=== PATIENT | female | born 1945 | race Caucasian/White ===

== ENCOUNTER 2016-05-15 18:26 | Inpatient (IN) | payer OTHER, MEDICARE ==
[~2016-05-15] VITALS: Ht 165.1 cm; Wt 101.7 kg
[~2016-05-15 18:26] MED LIST: ALLOPURINOL300 MG PO; ALPRAZOLAM0.5 MG PO; ARIMIDEX1 MG PO; ASPIR-LOW81 MG PO; BENADRYL50 MG PO; BIOTIN 5000MCG PO; BIOTIN2500 MCG PO; CALCIUM PO; CARAFATE1 GM PO; CELEXA40 MG PO; CENTRUM SILVER1 EAC3 PO; COLACE100 MG PO; FLEXERIL10 MG PO; GABAPENTIN300 MG PO; LEVOTHYROXINE175 MCG PO; MAGNESIUM OXID400 MG PO; METOCLOPRAMIDE10 MG PO; NORCO 5/3251 TABLET PO; OMEPRAZOLE40 M1 PO; OXAYDO5 MG PO; PERCOCET 10/1 TABLET PO; PERCOCET 5/31 TABLET PO; PERCOCET 7.51 TABLET PO; POLYETHYLENE GL17 GM PO; PROTONIX40 MG PO; REGLAN10 MG PO; REQUIP1 MG PO; SKELAXIN800 MG PO; TYLENOL EXTRA500 MG PO; VITAMIN B-12500 MC2 PO; VITAMIN D PO; VITAMIN D10000 UNIT PO; VITRON-C TABLE1 EACH PO; ZESTORETIC 20-1 EAC1 PO
[2016-05-15 19:23] LABS: EOSINOPHIL (%) 0.1 % (0-5); HEMATOCRIT 39.1 % (36.0-46.0); IMMATURE GRANULOCYTE (%) 0.3 % (0.0-0.7); IMMATURE GRANULOCYTE COUNT 0.6 K/uL; LYMPHOCYTE COUNT 0.6 K/uL (1.0-2.8); MCH 28.2 PG (29.0-34.0); MCHC 32.7 G/DL (30.0-36.0); MCV 86.1 FL (83-99); MEAN PLAT.VOLUME 11.1 uM^3 (9.5-12.4); MONOCYTE (%) 5.3 % (3-12); NEUTROPHIL COUNT 17.1 K/uL (1.8-6.4); PLATELET COUNT 185 K/uL (156-360); RBC DIS.WIDTH-CV 14.5 % (11.8-14.6); RED BLOOD COUNT 4.54 M/uL (3.80-5.20); WHITE BLOOD COUNT 18.8 K/uL (4.1-10.2)
[2016-05-15 19:46] LABS: TROP-I INTERPRETATION NEGATIVE; TROPONIN-I < 0.01 ng/mL (0.0-0.30)
[2016-05-15 19:50] LABS: CHLORIDE 102 mEq/L (99-109); SODIUM 138 mEq/L (136-147)
[2016-05-15 19:51] LABS: GLUCOSE 116 mg/dL (70-99)
[2016-05-15 19:53] LABS: ANION GAP 7 MEQ/L (2-14)
[2016-05-15 19:55] LABS: GFR ESTIMATE (CALCULATED) > 59 mL/min/
[2016-05-15 19:56] LABS: UREA NITROGEN (BUN) 14 mg/dL (9-23)
[2016-05-15 20:45] LABS: ADD MIUA? YES; BILIRUBIN NEGATIVE; BLOOD MODERATE; COLOR YELLOW ((YELLOW)); GLUCOSE (STRIP) NEGATIVE; KETONES NEGATIVE; LEUKOCYTES NEGATIVE; NITRITE NEGATIVE; PROTEIN (STRIP) NEGATIVE; SPECIFIC GRAVITY 1.011 (1.000-1.030); UROBILINOGEN 0.2 MG/DL (0.2-1.0)
[2016-05-15 20:57] LABS: BACTERIA RARE /HPF; EPITHELIAL CELLS RARE /HPF; MUCUS NONE SEEN /LPF; RED BLOOD CELLS 0-5 /HPF (0-5); UCUL ADDED? NO; WHITE BLOOD CELLS 0-5 /HPF (0-5)
[2016-05-15] MEDS ORDERED: ROPINIROLE HCL1 MG PO (21:53)
[2016-05-15] MEDS ORDERED: ZESTORETIC 20-1 EAC2 PO (21:53)
[2016-05-15] MEDS ORDERED: ZOFRAN4 MG PO (21:55)
[2016-05-15] MEDS ORDERED: SILVADENE20 GM TP (21:55)
[2016-05-15] MEDS ORDERED: METAMUCIL PACKE1 PKT PO (21:55)
[2016-05-16 00:10] VITALS: BP 92/54
[2016-05-16 08:06] VITALS: BP 138/63
[2016-05-16 16:00] VITALS: BP 140/59
[2016-05-17 00:18] VITALS: BP 122/81
[2016-05-17 06:35] LABS: HEMATOCRIT 31.8 % (36.0-46.0); MCH 28.6 PG (29.0-34.0); MCHC 32.4 G/DL (30.0-36.0); MCV 88.3 FL (83-99); MEAN PLAT.VOLUME 11.9 uM^3 (9.5-12.4); PLATELET COUNT 132 K/uL (156-360); RBC DIS.WIDTH-SD 48.6 % (39-53); WHITE BLOOD COUNT 16.8 K/uL (4.1-10.2)
[2016-05-17 07:04] LABS: ALKALINE PHOSPHATASE 64 IU/L (3-129); ANION GAP 9 MEQ/L (2-14); CHLORIDE 104 MEQ/L (99-109); GFR ESTIMATE (CALCULATED) > 59 mL/min/; GLUCOSE 125 mg/dL (70-99); POTASSIUM 3.5 MEQ/L (3.7-5.4); SAMPLE HEMOLYSIS CHECK 0; SAMPLE ICTERIC CHECK 0; SAMPLE LIPEMIA CHECK 0; SODIUM 135 MEQ/L (136-147); TOTAL BILIRUBIN 0.8 MG/DL (0.0-1.0); UREA NITROGEN (BUN) 14 mg/dL (9-23)
[2016-05-17 08:15] VITALS: BP 158/67
[2016-05-17 11:50] VITALS: BP 120/57
[2016-05-17 16:20] VITALS: BP 115/61
[2016-05-17 18:53] LABS: INFLUENZA A VIRAL ANTIGEN NEGATIVE; INFLUENZA B VIRAL ANTIGEN NEGATIVE
[2016-05-17 22:57] VITALS: BP 138/76
[2016-05-18 09:23] VITALS: BP 133/65
[2016-05-18 11:08] LABS: EOSINOPHIL (%) 0.1 % (0-5); HEMATOCRIT 30.7 % (36.0-46.0); IMMATURE GRANULOCYTE (%) 0.5 % (0.0-0.7); IMMATURE GRANULOCYTE COUNT 0.1 K/uL; LYMPHOCYTE COUNT 0.5 K/uL (1.0-2.8); MCH 29.2 PG (29.0-34.0); MCHC 33.2 G/DL (30.0-36.0); MEAN PLAT.VOLUME 11.6 uM^3 (9.5-12.4); MONOCYTE (%) 5.4 % (3-12); MONOCYTE COUNT 0.9 K/uL (0-0.8); NEUTROPHIL COUNT 15.8 K/uL (1.8-6.4); PLATELET COUNT 158 K/uL (156-360); RBC DIS.WIDTH-SD 48.3 % (39-53); RED BLOOD COUNT 3.49 M/uL (3.80-5.20); WHITE BLOOD COUNT 17.3 K/uL (4.1-10.2)
[2016-05-18 11:26] LABS: ALKALINE PHOSPHATASE 78 IU/L (3-129); ANION GAP 6 MEQ/L (2-14); CHLORIDE 102 MEQ/L (99-109); GFR ESTIMATE (CALCULATED) > 59 mL/min/; GLUCOSE 144 mg/dL (70-99); POTASSIUM 3.5 MEQ/L (3.7-5.4); SAMPLE HEMOLYSIS CHECK 0; SAMPLE ICTERIC CHECK 0; SAMPLE LIPEMIA CHECK 0; SODIUM 133 MEQ/L (136-147); UREA NITROGEN (BUN) 13 mg/dL (9-23)
[2016-05-18 11:27] LABS: TOTAL BILIRUBIN 0.6 MG/DL (0.0-1.0)
[2016-05-18 16:30] VITALS: BP 121/72
[2016-05-18 23:20] VITALS: BP 117/62
[2016-05-19 08:00] VITALS: BP 112/67
[2016-05-19 16:02] VITALS: BP 125/67
[2016-05-19 22:40] VITALS: BP 127/60
[2016-05-20 07:07] VITALS: BP 134/82
[2016-05-20 07:43] LABS: HEMATOCRIT 29.6 % (36.0-46.0); MCH 28.5 PG (29.0-34.0); MCHC 33.1 G/DL (30.0-36.0); MEAN PLAT.VOLUME 11.6 uM^3 (9.5-12.4); PLATELET COUNT 146 K/uL (156-360); RBC DIS.WIDTH-CV 14.9 % (11.8-14.6); RBC DIS.WIDTH-SD 47.1 % (39-53); RED BLOOD COUNT 3.44 M/uL (3.80-5.20)
[2016-05-20 07:44] LABS: WHITE BLOOD COUNT 10.2 K/uL (4.1-10.2)
[2016-05-20 07:45] LABS: ALKALINE PHOSPHATASE 66 IU/L (3-129); ANION GAP 7 MEQ/L (2-14); CHLORIDE 106 MEQ/L (99-109); GFR ESTIMATE (CALCULATED) > 59 mL/min/; POTASSIUM 3.6 MEQ/L (3.7-5.4); SAMPLE HEMOLYSIS CHECK 0; SAMPLE ICTERIC CHECK 0; SAMPLE LIPEMIA CHECK 0; UREA NITROGEN (BUN) 20 mg/dL (9-23)
[2016-05-20 07:46] LABS: GLUCOSE 97 mg/dL (70-99); SODIUM 140 MEQ/L (136-147); TOTAL BILIRUBIN 0.3 MG/DL (0.0-1.0)
[2016-05-20 15:05] VITALS: BP 148/74
[2016-05-20 23:23] VITALS: BP 161/70
[2016-05-21 07:42] VITALS: BP 140/72
[2016-05-21 11:43] VITALS: BP 160/75
[2016-05-21] MEDS ORDERED: DURICEF500 MG PO (14:50)
[2016-05-21 15:45] VITALS: BP 181/85
[2016-05-21] MEDS ORDERED: DURICEF1 GM PO (16:42)
== END 2016-05-21 18:23 | disposition home or self-care (01) | DRG 907 ==
LOC: EME 18:26 → 5EAST 22:10 → EDOF 22:10 → 5EAST 23:27
PROVIDERS: Emergency Medicine; Internal Medicine
DX: T85.79XA Infection and inflammatory reaction due to other internal prosthetic devices, implants and grafts, initial encounter (principal); A41.2 Sepsis due to unspecified staphylococcus; L03.313 Cellulitis of chest wall; N61.1 Abscess of the breast and nipple; Z45.811 Encounter for adjustment or removal of right breast implant; E11.9 Type 2 diabetes mellitus without complications; K21.9 Gastro-esophageal reflux disease without esophagitis; R50.9 Fever, unspecified; E66.9 Obesity, unspecified; I10 Essential (primary) hypertension; E03.9 Hypothyroidism, unspecified; Z88.8 Allergy status to other drugs, medicaments and biological substances; F32.9 Major depressive disorder, single episode, unspecified; L40.9 Psoriasis, unspecified; F41.9 Anxiety disorder, unspecified; C43.9 Malignant melanoma of skin, unspecified; D05.11 Intraductal carcinoma in situ of right breast; C73 Malignant neoplasm of thyroid gland; K57.90 Diverticulosis of intestine, part unspecified, without perforation or abscess without bleeding; Z85.3 Personal history of malignant neoplasm of breast; R10.9 Unspecified abdominal pain
CPT/HCPCS: 71010; 72192; 74176; 76937; 80048; 80053; 80170; 80202; 81003; 83605; 84484; 85025; 85027; 87040; 87070; 87075; 87077; 87147; 87186; 87205; 87502; 93005; 93306; 94799; 99281; 99285; J0690; J0692; J1100; J1170; J1580; J1650; J1956; J2405; J3010; J3370; J7030; J7050

== ENCOUNTER 2016-07-01 08:27 | Inpatient (IN) | payer OTHER, MEDICARE ==
[~2016-07-01] VITALS: Ht 165.1 cm; Wt 110.0 kg
[~2016-07-01 08:27] MED LIST changes: +DURICEF1 GM PO; +DURICEF500 MG PO; +METAMUCIL PACKE1 PKT PO; +ROPINIROLE HCL1 MG PO; +SILVADENE20 GM TP; +ZESTORETIC 20-1 EAC2 PO; +ZOFRAN4 MG PO
[2016-07-17] MEDS ORDERED: ZESTORETIC 20-1 EAC1 PO (13:30)
[2016-07-17] MEDS ORDERED: REQUIP1 MG PO (13:32)
[2016-07-22 11:36] VITALS: BP 134/78
[2016-07-22 18:50] VITALS: BP 110/57
[2016-07-22 20:00] VITALS: BP 119/66
[2016-07-23] VITALS (11 sets, daily range): BP systolic 78–124; BP diastolic 42–68
[2016-07-24 03:15] VITALS: BP 114/54
[2016-07-24 03:19] VITALS: BP 98/55
[2016-07-24 08:23] VITALS: BP 122/74
== END 2016-07-24 18:28 | disposition home or self-care (01) | DRG 460 ==
LOC: 2SOUTH 08:27 → SDC 14:40 → EDSTATUS 14:41 → 2SOUTH 14:44 → 3EAST 07-22 11:03 → 2SOUTH 07-22 11:03 → 3EAST 07-22 18:01
DX: M48.06 Spinal stenosis, lumbar region (principal); M43.16 Spondylolisthesis, lumbar region; M53.2X6 Spinal instabilities, lumbar region; G96.19 Other disorders of meninges, not elsewhere classified; G89.18 Other acute postprocedural pain; I10 Essential (primary) hypertension; E11.9 Type 2 diabetes mellitus without complications; F32.9 Major depressive disorder, single episode, unspecified; F41.9 Anxiety disorder, unspecified; G47.30 Sleep apnea, unspecified; E89.0 Postprocedural hypothyroidism; M10.9 Gout, unspecified; K21.9 Gastro-esophageal reflux disease without esophagitis; K44.9 Diaphragmatic hernia without obstruction or gangrene; Z98.84 Bariatric surgery status; Z85.3 Personal history of malignant neoplasm of breast; Z92.21 Personal history of antineoplastic chemotherapy
CPT/HCPCS: 72100; 76000; 86850; 86900; 86901; 94799; 97530 GO; J1100; J1170; J1580; J2250; J2405; J3010; J3370; J3480

== ENCOUNTER 2016-08-07 22:34 | Emergency (ER) | payer OTHER, MEDICARE ==
[~2016-08-07] VITALS: Ht 165.1 cm; Wt 99.0 kg
[2016-08-07 23:45] LABS: ADD MIUA? NO; BILIRUBIN NEGATIVE; BLOOD NEGATIVE; COLOR COLORLESS ((YELLOW)); GLUCOSE (STRIP) NEGATIVE; KETONES NEGATIVE; LEUKOCYTES NEGATIVE; NITRITE NEGATIVE; PROTEIN (STRIP) NEGATIVE; SPECIFIC GRAVITY 1.005 (1.000-1.030); UCUL ADDED? NO; UROBILINOGEN 0.2 MG/DL (0.2-1.0)
[2016-08-08 00:01] LABS: HEMATOCRIT 34.2 % (36.0-46.0); MCH 26.9 PG (29.0-34.0); MCHC 31.6 G/DL (30.0-36.0); MCV 85.1 FL (83-99); MEAN PLAT.VOLUME 10.6 uM^3 (9.5-12.4); RBC DIS.WIDTH-CV 14.2 % (11.8-14.6); RBC DIS.WIDTH-SD 44.1 % (39-53); RED BLOOD COUNT 4.02 M/uL (3.80-5.20)
[2016-08-08 00:07] LABS: PLATELET COUNT 435 K/uL (156-360); WHITE BLOOD COUNT 12.8 K/uL (4.1-10.2)
[2016-08-08 00:16] LABS: CHLORIDE 98 mEq/L (99-109); POTASSIUM 3.9 mEq/L (3.7-5.4); SODIUM 138 mEq/L (136-147)
[2016-08-08 00:18] LABS: GLUCOSE 146 mg/dL (70-99)
[2016-08-08 00:19] LABS: ANION GAP 12 MEQ/L (2-14)
[2016-08-08 00:21] LABS: GFR ESTIMATE (CALCULATED) 58 mL/min/
[2016-08-08 00:22] LABS: UREA NITROGEN (BUN) 14 mg/dL (9-23)
[2016-08-08] MEDS ORDERED: OXYCODONE-APAP1 EACH PO (01:27)
[2016-08-08 01:31] VITALS: BP 133/65
== END 2016-08-08 01:39 | disposition home or self-care (01) ==
LOC: EME 22:34
PROVIDERS: Emergency Medicine
DX: S70.02XA Contusion of left hip, initial encounter (principal); W06.XXXA Fall from bed, initial encounter; Y92.003 Bedroom of unspecified non-institutional (private) residence as the place of occurrence of the external cause; G89.29 Other chronic pain; F32.9 Major depressive disorder, single episode, unspecified; E11.9 Type 2 diabetes mellitus without complications; L40.9 Psoriasis, unspecified
CPT/HCPCS: 72131; 74176; 80048; 81003; 85027; 99281; 99285; J3010

== ENCOUNTER 2016-11-09 01:02 | Inpatient (IN) | payer OTHER, MEDICARE ==
[~2016-11-09] VITALS: Ht 165.1 cm; Wt 92.1 kg
[~2016-11-09 01:02] MED LIST changes: +OXYCODONE-APAP1 EACH PO
[2016-11-09 01:36] LABS: HEMATOCRIT 32.8 % (36.0-46.0); MCH 27.8 PG (29.0-34.0); MCV 86.8 FL (83-99); MEAN PLAT.VOLUME 10.7 uM^3 (9.5-12.4); PLATELET COUNT 236 K/uL (156-360); RBC DIS.WIDTH-CV 16.9 % (11.8-14.6); RBC DIS.WIDTH-SD 52.9 % (39-53); RED BLOOD COUNT 3.78 M/uL (3.80-5.20); WHITE BLOOD COUNT 15.4 K/uL (4.1-10.2)
[2016-11-09 01:44] LABS: CHLORIDE 96 mEq/L (99-109); POTASSIUM 3.1 mEq/L (3.7-5.4); SODIUM 136 mEq/L (136-147)
[2016-11-09 01:47] LABS: GLUCOSE 127 mg/dL (70-99)
[2016-11-09 01:48] LABS: ANION GAP 12 MEQ/L (2-14)
[2016-11-09 01:49] LABS: TOTAL BILIRUBIN 0.8 mg/dL (0.0-1.0)
[2016-11-09 01:50] LABS: ALKALINE PHOSPHATASE 102 IU/L (3-129); GFR ESTIMATE (CALCULATED) > 59 mL/min/
[2016-11-09 01:51] LABS: UREA NITROGEN (BUN) 16 mg/dL (9-23)
[2016-11-09 02:49] LABS: C-REACTIVE PROTEIN 33.7 MG/L (0-10)
[2016-11-09 04:39] VITALS: BP 112/59
[2016-11-09 08:15] VITALS: BP 109/58
[2016-11-09] MEDS ORDERED: OXYCODONE HCL15 MG PO (09:15)
[2016-11-09 12:00] VITALS: BP 117/59
[2016-11-09 16:50] VITALS: BP 105/56
[2016-11-09 20:00] VITALS: BP 166/55
[2016-11-09 23:53] VITALS: BP 100/58
[2016-11-10 03:45] VITALS: BP 102/64
[2016-11-10 06:37] LABS: HEMATOCRIT 29.6 % (36.0-46.0); MCHC 31.4 G/DL (30.0-36.0); MCV 89.2 FL (83-99); MEAN PLAT.VOLUME 11.3 uM^3 (9.5-12.4); PLATELET COUNT 167 K/uL (156-360); RED BLOOD COUNT 3.32 M/uL (3.80-5.20); WHITE BLOOD COUNT 5.9 K/uL (4.1-10.2)
[2016-11-10 07:07] LABS: ALKALINE PHOSPHATASE 63 IU/L (3-129); ANION GAP 8 MEQ/L (2-14); CHLORIDE 106 MEQ/L (99-109); GFR ESTIMATE (CALCULATED) > 59 mL/min/; POTASSIUM 3.4 MEQ/L (3.7-5.4); SAMPLE HEMOLYSIS CHECK 0; SAMPLE ICTERIC CHECK 0; SAMPLE LIPEMIA CHECK 0; SODIUM 140 MEQ/L (136-147); TOTAL BILIRUBIN 0.4 MG/DL (0.0-1.0); UREA NITROGEN (BUN) 11 mg/dL (9-23)
[2016-11-10 07:10] LABS: GLUCOSE 86 mg/dL (70-99)
[2016-11-10 08:00] VITALS: BP 134/60
[2016-11-10 11:15] VITALS: BP 118/57
[2016-11-10 16:17] VITALS: BP 84/52
[2016-11-11 00:17] VITALS: BP 110/52
[2016-11-11 08:10] VITALS: BP 107/53
[2016-11-11 16:43] VITALS: BP 100/50
[2016-11-11 23:24] VITALS: BP 134/66
[2016-11-12 08:10] VITALS: BP 124/68
[2016-11-12 10:36] LABS: EOSINOPHIL (%) 1.7 % (0-5); EOSINOPHIL COUNT 0.1 K/uL (0-0.3); IMMATURE GRANULOCYTE (%) 0.4 % (0.0-0.7); LYMPHOCYTE COUNT 1.4 K/uL (1.0-2.8); MCH 28.8 PG (29.0-34.0); MCHC 31.9 G/DL (30.0-36.0); MCV 90.4 FL (83-99); MEAN PLAT.VOLUME 10.9 uM^3 (9.5-12.4); MONOCYTE (%) 7.7 % (3-12); MONOCYTE COUNT 0.6 K/uL (0-0.8); NEUTROPHIL (%) 70.3 % (45-76); PLATELET COUNT 238 K/uL (156-360); RBC DIS.WIDTH-CV 17.1 % (11.8-14.6); RBC DIS.WIDTH-SD 56.2 % (39-53); RED BLOOD COUNT 3.54 M/uL (3.80-5.20); WHITE BLOOD COUNT 7.2 K/uL (4.1-10.2)
[2016-11-12 11:04] LABS: ANION GAP 8 MEQ/L (2-14); CHLORIDE 105 MEQ/L (99-109); GFR ESTIMATE (CALCULATED) > 59 mL/min/; GLUCOSE 92 mg/dL (70-99); SAMPLE HEMOLYSIS CHECK 0; SAMPLE ICTERIC CHECK 0; SAMPLE LIPEMIA CHECK 0; SODIUM 142 MEQ/L (136-147); UREA NITROGEN (BUN) 10 mg/dL (9-23)
[2016-11-12 11:05] LABS: POTASSIUM 4.4 MEQ/L (3.7-5.4)
[2016-11-12 15:52] VITALS: BP 105/72
[2016-11-12 23:25] VITALS: BP 124/73
[2016-11-13 07:28] VITALS: BP 117/58
[2016-11-13 15:25] VITALS: BP 109/71
[2016-11-13 19:53] VITALS: BP 120/66
[2016-11-14 00:09] VITALS: BP 120/66
[2016-11-14 07:27] VITALS: BP 125/76
[2016-11-14] MEDS ORDERED: TRAMADOL HCL50 MG PO (14:45)
[2016-11-14] MEDS ORDERED: DURICEF500 MG PO (14:45)
[2016-11-14] MEDS ORDERED: ENDOCET 5-3251 EACH PO (14:45)
[2016-11-14] MEDS ORDERED: KLOR-CON M1010 MEQ PO (14:45)
[2016-11-14] MEDS ORDERED: FUROSEMIDE20 MG PO (14:45)
== END 2016-11-14 15:50 | disposition home or self-care (01) | DRG 603 ==
LOC: EME 01:02 → EXP 01:02 → 2EASTP 03:15 → EDOF 03:15 → ENRESERV 03:26 → 2EASTP 04:23
PROVIDERS: Family Medicine; Internal Medicine; Physician Assistant
PROC: 0H9NXZZ Drainage of Left Foot Skin, External Approach (ICD-10-PCS; principal; 2016-11-09)
DX: L03.032 Cellulitis of left toe (principal); L02.612 Cutaneous abscess of left foot; E11.9 Type 2 diabetes mellitus without complications; E66.01 Morbid (severe) obesity due to excess calories; F32.9 Major depressive disorder, single episode, unspecified; L40.9 Psoriasis, unspecified; M79.89 Other specified soft tissue disorders; E03.9 Hypothyroidism, unspecified; G89.29 Other chronic pain; M16.0 Bilateral primary osteoarthritis of hip; F41.9 Anxiety disorder, unspecified; M10.9 Gout, unspecified; K21.9 Gastro-esophageal reflux disease without esophagitis; I10 Essential (primary) hypertension; G47.30 Sleep apnea, unspecified; Z85.820 Personal history of malignant melanoma of skin; Z85.850 Personal history of malignant neoplasm of thyroid; Z90.710 Acquired absence of both cervix and uterus; Z68.33 Body mass index [BMI] 33.0-33.9, adult; Z88.6 Allergy status to analgesic agent; Z88.0 Allergy status to penicillin; Z88.8 Allergy status to other drugs, medicaments and biological substances; Z90.13 Acquired absence of bilateral breasts and nipples; Z85.3 Personal history of malignant neoplasm of breast
CPT/HCPCS: 72170; 72195; 73630; 80048; 80053; 80202; 83605; 85025; 85027; 86140; 87040; 87070; 87075; 87077; 87147; 87186; 87205; 99281; 99285; J0692; J1650; J1956; J3370; J7050; S0020

== ENCOUNTER 2017-03-02 00:35 | Inpatient (IN) | payer OTHER, MEDICARE ==
[~2017-03-02] VITALS: Ht 157.5 cm; Wt 80.4 kg
[~2017-03-02 00:35] MED LIST changes: +ENDOCET 5-3251 EACH PO; +FUROSEMIDE20 MG PO; +KLOR-CON M1010 MEQ PO; +OXYCODONE HCL15 MG PO; +TRAMADOL HCL50 MG PO
[2017-03-02 01:52] LABS: ADD MIUA? YES; BILIRUBIN NEGATIVE; BLOOD NEGATIVE; COLOR YELLOW ((YELLOW)); GLUCOSE (STRIP) NEGATIVE; KETONES NEGATIVE; LEUKOCYTES SMALL; NITRITE NEGATIVE; PROTEIN (STRIP) NEGATIVE; SPECIFIC GRAVITY 1.013 (1.000-1.030); UROBILINOGEN 0.2 MG/DL (0.2-1.0)
[2017-03-02 02:00] LABS: EOSINOPHIL (%) 1.3 % (0-5); EOSINOPHIL COUNT 0.1 K/uL (0-0.3); HEMATOCRIT 31.3 % (36.0-46.0); IMMATURE GRANULOCYTE (%) 0.3 % (0.0-0.7); INSTRUMENT ABS NEUTROPHIL CT 7.4 K/uL; LYMPHOCYTE COUNT 1.8 K/uL (1.0-2.8); MCH 27.9 PG (29.0-34.0); MCHC 31.9 G/DL (30.0-36.0); MCV 87.2 FL (83-99); MEAN PLAT.VOLUME 11.7 uM^3 (9.5-12.4); MONOCYTE (%) 8.3 % (3-12); MONOCYTE COUNT 0.8 K/uL (0-0.8); NEUTROPHIL (%) 72.5 % (45-76); NEUTROPHIL COUNT 7.4 K/uL (1.8-6.4); PLATELET COUNT 200 K/uL (156-360); RBC DIS.WIDTH-CV 14.9 % (11.8-14.6); RBC DIS.WIDTH-SD 47.8 % (39-53); RED BLOOD COUNT 3.59 M/uL (3.80-5.20); WHITE BLOOD COUNT 10.2 K/uL (4.1-10.2)
[2017-03-02 02:03] LABS: BACTERIA NONE SEEN /HPF; EPITHELIAL CELLS RARE /HPF; MUCUS NONE SEEN /LPF; RED BLOOD CELLS 0-5 /HPF (0-5); UCUL ADDED? YES
[2017-03-02 02:08] LABS: CHLORIDE 98 mEq/L (99-109); POTASSIUM 3.7 mEq/L (3.7-5.4); SODIUM 135 mEq/L (136-147)
[2017-03-02 02:10] LABS: GLUCOSE 96 mg/dL (70-99)
[2017-03-02 02:12] LABS: ANION GAP 9 MEQ/L (2-14)
[2017-03-02 02:14] LABS: GFR ESTIMATE (CALCULATED) 58 mL/min/
[2017-03-02 02:15] LABS: UREA NITROGEN (BUN) 19 mg/dL (9-23)
[2017-03-02 08:31] VITALS: BP 116/58
[2017-03-02] MEDS ORDERED: ZESTORETIC 20-1 EAC1 PO (08:36)
[2017-03-02] MEDS ORDERED: OXYCODONE HCL10 MG PO (08:37)
[2017-03-02] MEDS ORDERED: LASIX20 MG PO (08:39)
[2017-03-02 12:03] VITALS: BP 168/79
[2017-03-02 17:27] VITALS: BP 156/88
[2017-03-02 19:57] VITALS: BP 106/55
[2017-03-02 23:33] VITALS: BP 123/63
[2017-03-03 04:29] VITALS: BP 134/63
[2017-03-03 07:56] VITALS: BP 115/52
[2017-03-03 12:23] VITALS: BP 105/58
[2017-03-03 17:17] VITALS: BP 110/52
[2017-03-03 20:12] VITALS: BP 99/58
[2017-03-03 23:30] VITALS: BP 98/56
[2017-03-04 02:59] VITALS: BP 98/49
[2017-03-04 03:41] VITALS: BP 98/49
[2017-03-04 05:07] VITALS: BP 153/66
[2017-03-04 06:03] LABS: HEMATOCRIT 32.1 % (36.0-46.0); MCH 26.7 PG (29.0-34.0); MCHC 31.2 G/DL (30.0-36.0); MCV 85.8 FL (83-99); MEAN PLAT.VOLUME 11.5 uM^3 (9.5-12.4); PLATELET COUNT 217 K/uL (156-360); RBC DIS.WIDTH-CV 15.1 % (11.8-14.6); RBC DIS.WIDTH-SD 47.4 % (39-53); RED BLOOD COUNT 3.74 M/uL (3.80-5.20); WHITE BLOOD COUNT 8.9 K/uL (4.1-10.2)
[2017-03-04 06:25] LABS: ANION GAP 9 MEQ/L (2-14); CHLORIDE 96 MEQ/L (99-109); GFR ESTIMATE (CALCULATED) > 59 mL/min/; GLUCOSE 86 mg/dL (70-99); POTASSIUM 3.7 MEQ/L (3.7-5.4); SAMPLE HEMOLYSIS CHECK 0; SAMPLE ICTERIC CHECK 0; SAMPLE LIPEMIA CHECK 0; SODIUM 136 MEQ/L (136-147); UREA NITROGEN (BUN) 17 mg/dL (9-23)
[2017-03-04 07:51] VITALS: BP 110/59
[2017-03-04] MEDS ORDERED: CYCLOBENZAPRINE10 MG PO (14:36)
[2017-03-04] MEDS ORDERED: LOVENOX40 MG/0.4 SC (14:37)
[2017-03-04] MEDS ORDERED: OXYCODONE-APAP1 EACH PO (14:41)
[2017-03-04] MEDS ORDERED: OXYCODONE HCL5 MG PO (14:41)
[2017-03-04 15:58] VITALS: BP 95/52
[2017-03-04] MEDS ORDERED: ALLOPURINOL300 MG PO (17:30)
== END 2017-03-04 17:44 | DRG 563 ==
LOC: EME → EDBD 00:35 → 3EAST 06:20 → EDOF 06:20 → ENRESERV 06:32 → 3EAST 08:21
PROVIDERS: Emergency Medicine; Family Medicine
DX: S82.14 Bicondylar fracture of tibia (principal); G89.29 Other chronic pain; F41.9 Anxiety disorder, unspecified; E03.9 Hypothyroidism, unspecified; K21.9 Gastro-esophageal reflux disease without esophagitis; I10 Essential (primary) hypertension; C73 Malignant neoplasm of thyroid gland; E11.9 Type 2 diabetes mellitus without complications; E78.5 Hyperlipidemia, unspecified; K52.9 Noninfective gastroenteritis and colitis, unspecified; K66.0 Peritoneal adhesions (postprocedural) (postinfection); M19.90 Unspecified osteoarthritis, unspecified site; G25.81 Restless legs syndrome; F32.9 Major depressive disorder, single episode, unspecified; M10.9 Gout, unspecified; W19.XXXA Unspecified fall, initial encounter; Y92.000 Kitchen of unspecified non-institutional (private) residence as the place of occurrence of the external cause; Z98.84 Bariatric surgery status
CPT/HCPCS: 72100; 73030; 73060; 73502; 73564; 73700; 80048; 81003; 85025; 85027; 87077; 87086; 87186; 93005; 97530 GP; 99281; 99285; J1170; J1650; J3010

== ENCOUNTER 2017-03-04 11:22 | Inpatient (IN) | payer OTHER, MEDICARE ==
[~2017-03-04] VITALS: Ht 165.1 cm; Wt 90.1 kg
[~2017-03-04 11:22] MED LIST changes: +LASIX20 MG PO; +OXYCODONE HCL10 MG PO
[2017-03-04] MEDS ORDERED: CYCLOBENZAPRINE10 MG PO (14:36)
[2017-03-04] MEDS ORDERED: LOVENOX40 MG/0.4 SC (14:37)
[2017-03-04] MEDS ORDERED: OXYCODONE-APAP1 EACH PO (14:41)
[2017-03-04] MEDS ORDERED: OXYCODONE HCL5 MG PO (14:41)
[2017-03-04] MEDS ORDERED: ALLOPURINOL300 MG PO (17:30)
[2017-03-04 18:14] VITALS: BP 111/59
[2017-03-04 23:57] VITALS: BP 91/52
[2017-03-05 05:01] VITALS: BP 97/54
[2017-03-05 07:00] LABS: HEMATOCRIT 30.4 % (36.0-46.0); MCH 27.2 PG (29.0-34.0); MCHC 30.6 G/DL (30.0-36.0); MCV 88.9 FL (83-99); MEAN PLAT.VOLUME 11.3 uM^3 (9.5-12.4); PLATELET COUNT 194 K/uL (156-360); RBC DIS.WIDTH-CV 15.3 % (11.8-14.6); RBC DIS.WIDTH-SD 48.6 % (39-53); RED BLOOD COUNT 3.42 M/uL (3.80-5.20); WHITE BLOOD COUNT 5.3 K/uL (4.1-10.2)
[2017-03-05 07:19] LABS: ALKALINE PHOSPHATASE 87 IU/L (3-129); ANION GAP 4 MEQ/L (2-14); CHLORIDE 98 MEQ/L (99-109); GFR ESTIMATE (CALCULATED) > 59 mL/min/; GLUCOSE 83 mg/dL (70-99); POTASSIUM 3.8 MEQ/L (3.7-5.4); SAMPLE HEMOLYSIS CHECK 0; SAMPLE ICTERIC CHECK 0; SAMPLE LIPEMIA CHECK 0; SODIUM 139 MEQ/L (136-147); TOTAL BILIRUBIN 0.4 MG/DL (0.0-1.0); UREA NITROGEN (BUN) 20 mg/dL (9-23)
[2017-03-05 15:53] VITALS: BP 85/52
[2017-03-05 18:48] VITALS: BP 80/44; BP 81/46
[2017-03-05 21:15] VITALS: BP 90/52
[2017-03-06 04:20] VITALS: BP 101/55
[2017-03-06 10:10] VITALS: BP 102/55
[2017-03-06 15:28] VITALS: BP 99/54
[2017-03-07 05:28] VITALS: BP 126/71
[2017-03-07 15:03] VITALS: BP 95/51
[2017-03-08 04:39] VITALS: BP 102/54
[2017-03-08 15:16] VITALS: BP 110/59
[2017-03-09 05:53] VITALS: BP 92/46
[2017-03-09 16:00] VITALS: BP 109/59
[2017-03-10 00:25] LABS: C DIFF TOXIN NEGATIVE (NEGATIVE)
[2017-03-10 00:27] LABS: PROBE CHECK PASS; SPECIMEN PROCESSING CONTROL PASS
[2017-03-10 06:32] VITALS: BP 116/59
[2017-03-10 15:27] VITALS: BP 115/57
[2017-03-11 06:12] VITALS: BP 102/57
[2017-03-11 15:15] VITALS: BP 109/59
[2017-03-12 05:28] VITALS: BP 112/53
[2017-03-12 15:28] VITALS: BP 151/66
[2017-03-13 05:47] VITALS: BP 99/52
[2017-03-13 09:15] VITALS: BP 102/59
[2017-03-13 17:03] VITALS: BP 99/52
[2017-03-13 21:18] VITALS: BP 128/60
[2017-03-14 04:47] VITALS: BP 133/60
[2017-03-14 15:33] VITALS: BP 103/51
[2017-03-15 05:09] VITALS: BP 150/60
[2017-03-15 15:59] VITALS: BP 87/48
[2017-03-15 16:08] VITALS: BP 90/66
[2017-03-15 16:19] VITALS: BP 118/64
[2017-03-16 06:19] VITALS: BP 99/55
[2017-03-16 15:58] VITALS: BP 96/52
[2017-03-17 04:56] LABS: HEMATOCRIT 30.4 % (36.0-46.0); MCH 27.4 PG (29.0-34.0); MCHC 30.9 G/DL (30.0-36.0); MCV 88.6 FL (83-99); MEAN PLAT.VOLUME 12.5 uM^3 (9.5-12.4); PLATELET COUNT 213 K/uL (156-360); RBC DIS.WIDTH-CV 15.9 % (11.8-14.6); RBC DIS.WIDTH-SD 51.6 % (39-53); RED BLOOD COUNT 3.43 M/uL (3.80-5.20); WHITE BLOOD COUNT 5.2 K/uL (4.1-10.2)
[2017-03-17 05:04] VITALS: BP 120/57
[2017-03-17 05:18] LABS: CHLORIDE 104 mEq/L (99-109); POTASSIUM 4.3 mEq/L (3.7-5.4); SODIUM 139 mEq/L (136-147)
[2017-03-17 05:20] LABS: GLUCOSE 92 mg/dL (70-99)
[2017-03-17 05:21] LABS: ANION GAP 8 MEQ/L (2-14)
[2017-03-17 05:23] LABS: GFR ESTIMATE (CALCULATED) > 59 mL/min/
[2017-03-17 05:24] LABS: UREA NITROGEN (BUN) 11 mg/dL (9-23)
[2017-03-17] MEDS ORDERED: OXYCODONE HCL15 MG PO (12:57)
[2017-03-17 15:27] VITALS: BP 109/53
[2017-03-18 06:01] VITALS: BP 122/61
[2017-03-18] MEDS ORDERED: LOVENOX40 MG/0.4 SC (13:27)
[2017-03-18] MEDS ORDERED: LISINOPRIL-HCT1 EACH PO (13:27)
[2017-03-18] MEDS ORDERED: VITAMIN D31000 UNI2 PO (13:27)
[2017-03-18] MEDS ORDERED: SENNA PLUS TAB1 EACH PO (13:27)
[2017-03-18] MEDS ORDERED: DOCUSATE SODIU100 MG PO (13:27)
== END 2017-03-18 14:15 | disposition home health service (06) | DRG 561 ==
LOC: 3WEST 11:22 → ENPENDDIS 03-18 → 3WEST 03-18 14:15
PROVIDERS: Physical Medicine & Rehabilitation Pain Medicine
PROC: F07M0ZZ Range of Motion and Joint Mobility Treatment of Musculoskeletal System - Whole Body (ICD-10-PCS; principal; 2017-03-04)
DX: S82.144D Nondisplaced bicondylar fracture of right tibia, subsequent encounter for closed fracture with routine healing (principal); W01.0XXD Fall on same level from slipping, tripping and stumbling without subsequent striking against object, subsequent encounter; R26.9 Unspecified abnormalities of gait and mobility; G89.11 Acute pain due to trauma; M79.604 Pain in right leg; I95.9 Hypotension, unspecified; R40.0 Somnolence; R19.4 Change in bowel habit; R11.0 Nausea; M62.838 Other muscle spasm; F41.9 Anxiety disorder, unspecified; F32.9 Major depressive disorder, single episode, unspecified; I10 Essential (primary) hypertension; K21.9 Gastro-esophageal reflux disease without esophagitis; G25.81 Restless legs syndrome; G89.29 Other chronic pain; M54.5 Low back pain; M16.11 Unilateral primary osteoarthritis, right hip; M17.11 Unilateral primary osteoarthritis, right knee; D64.9 Anemia, unspecified; E03.9 Hypothyroidism, unspecified; E66.01 Morbid (severe) obesity due to excess calories; Z68.33 Body mass index [BMI] 33.0-33.9, adult; Z85.3 Personal history of malignant neoplasm of breast; Z90.10 Acquired absence of unspecified breast and nipple; Z98.1 Arthrodesis status; Z98.84 Bariatric surgery status; Z79.891 Long term (current) use of opiate analgesic
CPT/HCPCS: 80048; 80053; 85027; 87493; 94799; 97110 GO; 97530 GP; J1650

== ENCOUNTER 2017-03-22 17:54 | Emergency (ER) | payer OTHER, MEDICARE ==
[~2017-03-22] VITALS: Ht 165.1 cm; Wt 86.3 kg
[~2017-03-22 17:54] MED LIST changes: +CYCLOBENZAPRINE10 MG PO; +DOCUSATE SODIU100 MG PO; +LISINOPRIL-HCT1 EACH PO; +LOVENOX40 MG/0.4 SC; +OXYCODONE HCL5 MG PO; +SENNA PLUS TAB1 EACH PO; +VITAMIN D31000 UNI2 PO
[2017-03-22 20:35] VITALS: BP 133/79
== END 2017-03-22 20:40 | disposition home or self-care (01) ==
LOC: EME 17:54
PROC: 2W3DX1Z Immobilization of Left Lower Arm using Splint (ICD-10-PCS; principal; 2017-03-22)
DX: S59.202A Unspecified physeal fracture of lower end of radius, left arm, initial encounter for closed fracture (principal); W18.30XA Fall on same level, unspecified, initial encounter; E11.9 Type 2 diabetes mellitus without complications; L40.9 Psoriasis, unspecified; F32.9 Major depressive disorder, single episode, unspecified; Z85.820 Personal history of malignant melanoma of skin; Z88.0 Allergy status to penicillin; Z88.8 Allergy status to other drugs, medicaments and biological substances
CPT/HCPCS: 73110; 73130; 99281; 99284

== ENCOUNTER 2017-06-28 17:24 | Emergency (ER) | payer OTHER, MEDICARE ==
[~2017-06-28] VITALS: Ht 165.1 cm; Wt 98.7 kg
[2017-06-28] MEDS ORDERED: SILVADENE20 GM TP (19:51)
[2017-06-28 20:36] VITALS: BP 126/78
== END 2017-06-28 20:29 | disposition home or self-care (01) ==
LOC: EME 17:24
DX: T22.112A Burn of first degree of left forearm, initial encounter (principal); S60.812A Abrasion of left wrist, initial encounter; S60.811A Abrasion of right wrist, initial encounter; W22.11XA Striking against or struck by driver side automobile airbag, initial encounter; T14.8XXA Other injury of unspecified body region, initial encounter; V89.2XXA Person injured in unspecified motor-vehicle accident, traffic, initial encounter; R51 Headache; E11.9 Type 2 diabetes mellitus without complications; F32.9 Major depressive disorder, single episode, unspecified; Z98.84 Bariatric surgery status; Z88.0 Allergy status to penicillin; Z85.820 Personal history of malignant melanoma of skin
CPT/HCPCS: 70450; 71045; 73090; 73130; 99281; 99284